=== PATIENT | female | born 1950 | race Caucasian/White ===

== ENCOUNTER → 2017-02-24 | Outpatient (CLI) | payer OTHER ==
[2017-02-24 12:27] LABS: BASO ABS # 0.06 K/uL (0-0.2); COMPLETE YES; EOS % 2.5 %; HEMATOCRIT 38.6 % (37-47); IG% 0.2 %; LYMPH ABS # 1.01 K/uL (1.2-3.4); MEAN CELL VOLUME 90.6 fL (80-100); MEAN CORPUSCULAR HGB CONC 33.2 g/dl (32-36); MEAN PLATELET VOLUME 9.6 fL (7.4-10.4); NEUT % 73.3 %; PLATELET COUNT 368 K/uL (130-400); RED BLOOD COUNT 4.26 M/uL (4.2-5.4)
[2017-02-24 12:54] LABS: POTASSIUM 4.5 mmol/L (3.5-5.1)
[2017-02-24 13:02] LABS: ALB/GLOB RATIO 1.2 (0.9-2); AST/SGOT 20 U/L (15-37); BLOOD UREA NITROGEN 22 mg/dl (7-18); BUN/CREATININE RATIO 30.2 (10-20); CARBON DIOXIDE 25 mmol/L (21-32); CHLORIDE 108 mmol/L (98-107); CHOLESTEROL/HDL RATIO 3.3; CREATININE 0.72 mg/dl (0.60-1.20); GLUCOSE 92 mg/dl (70-99); LDL CHOLESTEROL CALCULATED 159 mg/dl; SODIUM 143 mmol/L (136-145); TRIGLYCERIDES 99 mg/dl (0-150); VERY LOW DENSITY LIPOPROT CALC 20 mg/dl
[2017-02-24 13:05] LABS: ALKALINE PHOSPHATASE 71 U/L (45-117); CHOLESTEROL 253 mg/dl (0-200); HDL CHOLESTEROL 79 mg/dl
[2017-02-24 13:13] LABS: URINE APPEARANCE CLEAR (CLEAR); URINE BILIRUBIN NEG (NEG); URINE COLOR YELLOW; URINE EPITHELIAL CELL AUTO 0-5 /lpf (0-5); URINE NITRITE NEG (NEG); URINE SPECIFIC GRAVITY 1.017 (1.000-1.030); UROBILINOGEN NEG (NEG); ZZUR CULT IF INDIC CLEAN CATCH NO
[2017-02-24 13:14] LABS: ALT/SGPT 35 U/L (12-78)
[2017-02-24 13:18] LABS: MANUAL MICROSCOPIC REQUIRED? NO; REVIEW REQ? NO
== END | disposition home or self-care (01) ==
LOC: C.LABBFT 10:47
PROVIDERS: ATTEND Internal Medicine
DX: D72.819 Decreased white blood cell count, unspecified (principal); E55.9 Vitamin D deficiency, unspecified; R63.5 Abnormal weight gain; E78.5 Hyperlipidemia, unspecified

== ENCOUNTER → 2017-02-26 | Outpatient (CLI) | payer OTHER ==
--- NOTE | 2017-02-26 07:56 | DIAGNOSTIC IMAGING REPORT ---
RIGHT KNEE 2 VIEWS CLINICAL HISTORY: Posterior right knee pain. FINDINGS: AP and lateral views of the right knee are obtained. No prior studies are available for comparison at the time of dictation. The skeletal structures are osteopenic. No fracture is seen. Mild degenerative narrowing is seen at the patellofemoral articulation. The medial and lateral compartments appear preserved. There is mild degenerative beaking of the tibial spine. No joint effusion is identified. Soft tissue edema is seen posterior to the knee. IMPRESSION: 1. Osteopenia and minimal arthritic change as above. No acute bony abnormality is identified in the right knee. 2. Posterior soft tissue edema is noted and may be related to a popliteal cyst. Clinical correlation will be required. Electronically signed by: Gil Vaughan M.D. 02/26/2017 7:55 AM Dictated Date/Time: 02/26/2017 7:54 AM
--- NOTE | 2017-02-26 12:18 | DIAGNOSTIC IMAGING REPORT ---
EXTREMITY NONVASCULAR LIMITED HISTORY: 66 years-old Female M71.20 Popliteal cystRight popliteal [id number] right popliteal cyst. COMPARISON: Right knee radiographs 02/26/2017 TECHNIQUE: Multiple real-time sonographic images of the right popliteal fossa region were obtained assessing grayscale appearance and color flow FINDINGS: The right popliteal fossa, no aneurysmal dilation of the popliteal artery identified. There is a mildly septated mildly complex hypoechoic collection, 2.4 x 0.9 x 1.8 cm suggesting trace Meza's cyst. No additional soft tissue mass or collection identified. IMPRESSION: Mildly complex septated cystic area of the right popliteal fossa measuring up to 2.4 cm suggests Meza's cyst. The above report was generated using voice recognition software. It may contain grammatical, syntax or spelling errors. Electronically signed by: Deniz Uriarte M.D. 02/26/2017 12:17 PM Dictated Date/Time: 02/26/2017 12:15 PM
== END | disposition home or self-care (01) ==
LOC: C.ULTR 07:18
PROVIDERS: ATTEND Internal Medicine
DX: M71.20 Synovial cyst of popliteal space [Baker], unspecified knee (principal); M85.861 Other specified disorders of bone density and structure, right lower leg; M79.89 Other specified soft tissue disorders

== ENCOUNTER → 2017-03-10 | Outpatient (CLI) | payer OTHER ==
--- NOTE | 2017-03-11 07:46 | MAMMOGRAPHY REPORT ---
BILATERAL DIGITAL SCREENING MAMMOGRAM TOMOSYNTHESIS WITH CAD: 03/10/2017 CLINICAL HISTORY: Routine screening. Patient has no complaints. TECHNIQUE: Breast tomosynthesis in addition to standard 2D mammography was performed. Current study was also evaluated with a Computer Aided Detection (CAD) system. COMPARISON: Comparison is made to exams dated: 03/05/2016 mammogram - [facility], 03/02/2013 mammogram, and 07/10/2011 mammogram - [facility]. BREAST COMPOSITION: There are scattered areas of fibroglandular density in both breasts. FINDINGS: No suspicious masses, calcifications, or areas of architectural distortion are noted in ei ther breast. There has been no significant interval change compared to prior exams. IMPRESSION: ACR BI-RADS CATEGORY 1: NEGATIVE There is no mammographic evidence of malignancy. A 1 year screening mammogram is recommended. The pa tient will receive written notification of the results. Approximately 10% of breast cancers are not detected with mammography. A negative mammographic report should not delay biopsy if a clinically suggestive mass is present. Eusebia Quintana M.D. ah/:03/10/2017 07:46:22 Machining Technician: Donna Beach, [facility] letter sent: Normal 1/2 BI-RADS Code: ACR BI-RADS Category 1: Negative
== END | disposition home or self-care (01) ==
LOC: C.MAMM 07:17
PROVIDERS: ATTEND Internal Medicine
DX: Z12.31 Encounter for screening mammogram for malignant neoplasm of breast (principal)

== ENCOUNTER → 2017-04-22 | Outpatient (CLI) | payer OTHER ==
--- NOTE | 2017-04-22 08:28 | DIAGNOSTIC IMAGING REPORT ---
R LOWER EXT JOINT WITHOUT CLINICAL HISTORY: KNEE PAIN pain TECHNIQUE: MRI multi axial acquisition COMPARISON STUDY: None FINDINGS: Signal characteristics of the osseous structures are in general unremarkable. There is a small degenerative subchondral cysts immediately deep to the tibial spines. No significant bone marrow replacing process is appreciated. There is a small joint effusion. There is a very small popliteal cyst measuring 1.4 cm. Anterior and posterior cruciate ligaments are unremarkable. Medial and lateral meniscus appears to be unremarkable with only minimal degenerative change of the articular services. All major joint compartments show minimal degenerative change of the articular services. This includes a small amount of central chondromalacia patella patella. There is minimal degenerative narrowing of the medial and lateral joint compartments bilaterally. The collateral ligaments structures are unremarkable. IMPRESSION: 1. Minimal degenerative change of the articular surfaces.. 2. Small joint effusion. 3. Small popliteal cyst. The above report was generated using voice recognition software. It may contain grammatical, syntax or spelling errors. Electronically signed by: Bg Lipscomb M.D. 04/22/2017 8:27 AM Dictated Date/Time: 04/22/2017 8:23 AM
== END | disposition home or self-care (01) ==
LOC: C.MRI 07:15
PROVIDERS: ATTEND Orthopaedic Surgery Sports Medicine
DX: M25.561 Pain in right knee (principal); G89.29 Other chronic pain; M25.461 Effusion, right knee; M71.21 Synovial cyst of popliteal space [Baker], right knee

== ENCOUNTER → 2017-05-19 | Outpatient (CLI) | payer OTHER | END | disposition home or self-care (01) | LOC: C.LAB 07:36 | PROVIDERS: ATTEND Internal Medicine | DX: E55.9 Vitamin D deficiency, unspecified (principal) ==